=== PATIENT | male | born 1985 | race African-American/Black ===

== ENCOUNTER 2020-03-05 01:45 | Emergency (ER) | payer SELFPAY ==
[2020-03-05 01:49] VITALS: BP 112/70; PULSE 73; RESP 18; TEMP 36.4; O2SAT 100
--- NOTE | 2020-03-05 02:02 | ED.ABDPAIN ---
HPI - Abdominal Pain General Chief Complaint: Abdominal Pain Stated Complaint: abd pain, n/v History of Present Illness HPI narrative: 34 yo male presents with Epigastric abdominal pain. He says that he has the pain 1 or 2 times a month for quite awhile. The pain is burning in quality. It radiates into his chest. Associated with nausea and vomiting and diarrhea. He has not tried anything for his symptoms. Related Data Allergies Allergy/AdvReac Type Severity Reaction Status Date / Time iodine Allergy Mild RASH Verified 02/02/18 10:21 Review of Systems Review of Systems: All systems reviewed & are unremarkable except as noted in HPI and below Constitutional: Constitutional: Denies chills and Denies fever(s) ENT: Denies sore throat Cardiovascular: Cardiovascular: Denies chest pain Respiratory: Respiratory: Denies dyspnea Gastrointestinal: Gastrointestinal: Reports abdominal pain, Reports diarrhea, Reports nausea and Reports vomiting PMFSH Social History Social History Gender identity (if verbalized by the patient): Male Exam Const: General: no acute distress and alert Orientation/consciousness: patient oriented x3 HENMT: Mouth: Yes dry mucous membranes Resp: Effort & Inspection: normal respiratory effort Auscultation: clear to auscultation bilaterally Cardio: Rate: regular rate Rhythm: regular rhythm GI: GI Palp: Yes Soft to palpation and Yes Tenderness to palpation present (GI) (epigastrium) Skin: General skin exam: normal color Neuro: General: patient oriented x3 Speech: normal speech Extrem: General: normal to inspection Course Vital Signs Vital signs: Vital Signs Temperature 36.4 C 03/05/20 01:49 Pulse Rate 73 03/05/20 01:49 Respiratory Rate 18 03/05/20 01:49 Blood Pressure 112/70 03/05/20 01:49 Pulse Oximetry 100 03/05/20 01:49 Temperature 36.4 C 03/05/20 01:49 Pulse Rate 73 03/05/20 01:49 Respiratory Rate 18 03/05/20 01:49 Blood Pressure 112/70 03/05/20 01:49 Pulse Oximetry 100 03/05/20 01:49 MDM - Abdominal Pain MDM Narrative Medical decision making narrative: Symptoms most concerning for GERD, possibly gastritis or ulcer. Feeling better after GI cocktail. I will start him on acid controling medication. Medical Records Attestation: I reviewed the patient's medical records. Lab Data Attestation: I reviewed the patient's lab results. Result diagrams: 03/05/20 02:21 03/05/20 02:21 Labs: Lab Results 03/05/20 03/05/20 Range/Units 02:21 02:21 WBC 5.4 (4.5-10.0) K/mm3 RBC 4.75 (4.6-6.20) M/mm3 Hgb 13.0 L (14.0-18.0) g/dL Hct 40.8 L (42.0-52.0) % MCV 85.9 (80-100) fl MCH 27.4 (26-34) pg MCHC 31.9 L (32-36) g/dl RDW 12.8 (11.5-14.5) % Plt Count 330 (150-375) k/mm3 MPV 9.5 (7.4-10.4) fl Immature Gran % (Auto) 0.2 (0-0.5) % Neut % (Auto) 48.0 (45.5-73.1) % Lymph % (Auto) 41.9 (18.3-44.2) % O'Brien % (Auto) 7.8 (2.6-8.5) % Eos % (Auto) 1.9 (0-4.4) % Baso % (Auto) 0.2 (0.2-1.2) % Lymph # (Auto) 2.26 (0.9-3.2) K/mm3 O'Brien # (Auto) 0.4 (0.1-0.6) K/mm3 Eos # (Auto) 0.1 (0-0.3) K/mm3 Baso # (Auto) 0.0 (0.0-0.1) K/mm3 Abs Immat Gran (auto) 0.01 (0.00-0.031) K/mm3 Absolute Neuts (auto) 2.6 (1.3-6.7) K/mm3 Absolute Nucleated RBC 0.0 (0.0-0.012) K/mm3 Nucleated RBC % 0.0 (0.0-0.2) % Sodium 136 L (137-145) mmol/L Potassium 4.2 (3.4-5.0) mmol/L Chloride 105 (98-107) mmol/L Carbon Dioxide 26 (22-30) mmol/L BUN 11 (9-20) mg/dL Creatinine 0.90 (0.7-1.3) mg/dL Estim Creat Clear Calc 115 ml/min Estimated GFR > 60 (59 - ) Glucose 105 (75-110) mg/dL Calcium 8.7 (8.4-10.2) mg/dL Total Bilirubin 0.7 (0.2-1.3) mg/dL AST 30 (17-59) U/L ALT 21 (4-50) U/L Alkaline Phosphatase 74 (38-126) U/L Total Protein 7.0 (6.3-8.2) g/dL Album
[2020-03-05] MEDS: ONDANSETRON INJ 4 MG/2 ML VIAL IV PUSH (02:03)
[2020-03-05] MEDS: PANTOPRAZOLE SODIUM IV 40 MG VIAL IV PUSH (02:03)
[2020-03-05] MEDS: SODIUM CHLORIDE 0.9% IV 1,000 ML 999 ML IV CONT (02:05)
[2020-03-05 02:31] LABS: Basophils Percent Auto 0.2 % (0.2-1.2); Eosinophils Absolute Auto 0.1 K/mm3 (0-0.3); Eosinophils Percent Auto 1.9 % (0-4.4); Hematocrit 40.8 % (42.0-52.0); Immature Granulocyte Absolute 0.01 K/mm3 (0.00-0.031); Immature Granulocyte Percent A 0.2 % (0-0.5); Lymphocytes Absolute Auto 2.26 K/mm3 (0.9-3.2); Lymphocytes Percent Auto 41.9 % (18.3-44.2); Mean Corpuscular HGB Conc 31.9 g/dl (32-36); Mean Corpuscular Hemoglobin 27.4 pg (26-34); Mean Corpuscular Volume 85.9 fl (80-100); Mean Platelet Volume 9.5 fl (7.4-10.4); Monocytes Absolute Auto 0.4 K/mm3 (0.1-0.6); Monocytes Percent Auto 7.8 % (2.6-8.5); Neutrophils Absolute Auto 2.6 K/mm3 (1.3-6.7); Platelet Count Result 330 k/mm3 (150-375); Red Blood Count 4.75 M/mm3 (4.6-6.20); Red Cell Distribution Width 12.8 % (11.5-14.5); White Blood Count 5.4 K/mm3 (4.5-10.0)
[2020-03-05 02:39] LABS: Alanine Aminotransferase 21 U/L (4-50); Albumin Level 3.9 g/dL (3.5-5.1); Alkaline Phosphatase 74 U/L (38-126); Aspartate Amino Transferase 30 U/L (17-59); Bilirubin,Total 0.7 mg/dL (0.2-1.3); Blood Urea Nitrogen 11 mg/dL (9-20); Calcium 8.7 mg/dL (8.4-10.2); Carbon Dioxide 26 mmol/L (22-30); Chloride 105 mmol/L (98-107); Estimated CRCL calculation 115 ml/min; Estimated Glomerular Filt Rate > 60; Glucose 105 mg/dL (75-110); Lipase 82 U/L (23-300); Potassium 4.2 mmol/L (3.4-5.0); Sodium 136 mmol/L (137-145)
[2020-03-05] MEDS: DICYCLOMINE HCL 10 MG CAPSULE 20 MG PO (03:03)
== END 2020-03-05 03:06 | disposition home or self-care (01) ==
PROVIDERS: Emergency Provider Emergency Medicine
DX: R10.13 Epigastric pain (principal)
CPT/HCPCS: 36415; 80053; 83690; 85025; 96361; 96374; 96375; 99284; A9270; C9113; J2405; J7030

== ENCOUNTER 2023-07-19 12:53 | Emergency (ER) | payer SELFPAY ==
--- NOTE | ~2023-07-19 | XR_ITS ---
EXAMINATION: XR foot LT min 3V DATE: 07/19/2023 13:08 INDICATION: Left foot pain TECHNIQUE: Dorsoplantar, lateral, and 2 oblique views of the left foot were obtained. COMPARISON: None. FINDINGS: Bone alignment is normal. There is no fracture. There is lateral soft tissue swelling near the fifth metatarsophalangeal joint. There is mild osteoarthritis of multiple interphalangeal joints. IMPRESSION: 1. No acute osseous abnormality. Reviewed, dictated and finalized at location L.
[2023-07-19 13:21] VITALS: BP 134/78; PULSE 80; RESP 12; TEMP 36.2; O2SAT 100
--- NOTE | 2023-07-19 17:48 | ED.LOWEXIN ---
HPI - Extremity Injury (Lower) General Chief Complaint: Extremity Injury, Lower Stated Complaint: L FOOT INJURY Time Seen by Provider: 07/19/23 17:26 Source: patient Mode of arrival: wheelchair Limitations: no limitations History of Present Illness HPI Narrative: This is a 37-year-old male that presents to the emergency department after an injury to his left fifth toe sustained just prior to arrival. Reports he stubbed it on the wall. Reports swelling and pain in the area. Reports decreased range of motion due to pain. Denies numbness. Related Data Allergies Allergy/AdvReac Type Severity Reaction Status Date / Time iodine Allergy Mild RASH Verified 02/02/18 10:21 Review of Systems Review of Systems: CONSTITUTIONAL: Denies fever MUSCULOSKELETAL: Reports joint pain, and myalgia. NEUROLOGIC: Denies numbness All systems reviewed & are unremarkable except as noted in HPI and below PMFSH Past Medical History Medical History (Updated 07/19/23 @ 17:52 by Neetu Borrero PA-C) No active medical problems Social History Social History (Updated 07/19/23 @ 17:52 by Neetu Borrero PA-C) Substance use: never Gender identity (if verbalized by the patient): Male Exam Narrative: GENERAL: Well-appearing, well-nourished, and in no acute distress. HEAD: Normocephalic, atraumatic. EYES: EOMI. EXTREMITIES: Normal range of motion. Mild edema about the left fifth metatarsal/phalangeal joint. Tender to palpation. Normal DP pulse. Normal sensation SKIN: Warm, dry, no rash. NEURO: No focal deficits. Alert and oriented x3. PSYCH: Normal mood and affect Course Course Emergency Course: Patient updated on work-up and agrees with plan of care Vital Signs Vital signs: Vital Signs Temperature 97.2 F L 07/19/23 13:21 Pulse Rate 80 07/19/23 13:21 Respiratory Rate 12 07/19/23 13:21 Blood Pressure 134/78 07/19/23 13:21 Pulse Oximetry 100 07/19/23 13:21 Oxygen Delivery Room Air 07/19/23 13:21 Temperature 97.2 F L 07/19/23 13:21 Pulse Rate 80 07/19/23 13:21 Respiratory Rate 12 07/19/23 13:21 Blood Pressure 134/78 07/19/23 13:21 Pulse Oximetry 100 07/19/23 13:21 Oxygen Delivery Room Air 07/19/23 13:21 MDM - Extremity Injury (Lower) MDM Narrative Medical decision making narrative: Patient presents to the emergency department after an injury to his left fifth toe prior to arrival. He is neurovascularly intact. Left foot x-rays without acute osseous abnormalities. Patient placed in a postop shoe and given crutches. Instructed on care of foot sprain. He is to follow-up with primary provider. He was given warnings to return to the ER Differential Diagnosis Differential diagnosis: Likely fracture of toe and other (Foot fracture, foot sprain) Imaging Data Radiologist's impression: ITS Impressions Foot X-Ray 07/19/23 13:10 IMPRESSION: 1. No acute osseous abnormality. Critical Care Time Critical Care Time Critical Care Time: No Discharge Plan Discharge Clinical Impression: Foot sprain Qualifiers: Encounter type: initial encounter Laterality: left Qualified Code(s): S93.602A - Unspecified sprain of left foot, initial encounter Patient Disposition: Home, Self-Care Condition: Stable Instructions: Foot Sprain (ED) Additional Instructions: Return to the ER if you experience fever, redness and swelling of your extremity, numbness or any other symptoms that are concerning to you Wear postop shoe and use crutches. No weight on the affected leg until able to bear weight without pain. Ice and elevate extremity. Pain medication as needed and directed. Follow up with primary care doctor for further care. Prescriptions: No Action pantoprazole [Protonix] 40 mg tablet,delayed release (DR/EC) 40 mg PO HS Qty: 30 0RF dicyclomine 20 mg tablet 20 mg PO BID PRN (Reason: abdominal pain) Qty: 20 0RF Follow-up/Referrals: PHYSICIAN,O
[2023-07-19 18:04] VITALS: BP 130/70; PULSE 80; RESP 16; TEMP 36.6; O2SAT 99
== END 2023-07-19 18:14 | disposition home or self-care (01) ==
PROVIDERS: Emergency Provider Physician Assistant
DX: S93.602A Unspecified sprain of left foot, initial encounter (principal); W22.01XA Walked into wall, initial encounter
CPT/HCPCS: 73630; 99283

== ENCOUNTER 2023-07-29 10:36 | Emergency (ER) | payer SELFPAY ==
[2023-07-29 10:47] VITALS: BP 131/93; PULSE 91; RESP 16; TEMP 36.8; O2SAT 100
--- NOTE | 2023-07-29 11:08 | ED.GENADULT ---
HPI - General Adult General Chief complaint: Upper Respiratory Infection Stated complaint: WANTS COVID TEST/NO SYMPTOMS Time Seen by Provider: 07/29/23 11:09 Source: patient, RN notes reviewed and old records reviewed Mode of arrival: ambulatory Limitations: no limitations History of Present Illness HPI narrative: 37 year old male presents to [facility] care with stated complaints that he injected himself with methamphetamine yesterday and he wants to be tested for COVID because he thinks he injected COVID into himself also. Patient denies any cough, sore throat, fevers, nasal congestion or drainage, body aches, or any nausea, vomiting or diarrhea. I explained that COVID is normally contacted through respiratory system. Patient reports he needs tested for COVID. Patient reports that he does not use methamphetamine daily. He reports also that he is enrolled in a study R13 through [employer]. complaint: Patient thinks he injected himself with COVID Onset (ago): day(s) (yesterday) Treatments prior to arrival: none Related Data Home Medications Medication Instructions Recorded Confirmed No Home Medications 07/29/23 07/29/23 Allergies Allergy/AdvReac Type Severity Reaction Status Date / Time iodine Allergy Mild RASH Verified 07/29/23 10:44 Review of Systems Review of Systems: CONSTITUTIONAL: Denies fever, chills, or sweats. EYES: Denies visual changes, redness, or discharge. ENT: Denies rhinorrhea, congestion, sore throat, or otalgia. CARDIOVASCULAR: Denies chest pain, palpitations, or edema. RESPIRATORY: Denies cough or dyspnea. GASTROINTESTINAL: Denies abdominal pain, nausea, vomiting, or diarrhea. GENITOURINARY: Denies dysuria or hematuria. SKIN: Denies rash or itching. MUSCULOSKELETAL: Denies back pain, joint pain, or myalgia. NEUROLOGIC: Denies headache, numbness, or weakness. PSYCHIATRIC: Denies anxiety or depression. All systems reviewed & are unremarkable except as noted in HPI and below PMFSH Past Medical History Medical History (Updated 07/31/23 @ 19:40 by Shahana Davis NP) No active medical problems Social History Social History (Updated 07/31/23 @ 19:25 by Shahana Davis NP) Substance use type: methamphetamine Gender identity (if verbalized by the patient): Male Comments At time of signature, agree with nursing past medical, surgical, social and family history. There is no relevant family history pertinent to the presenting complaint Exam Narrative: GENERAL: Well-appearing, well-nourished, and in no acute distress. HEAD: Normocephalic, atraumatic. EYES: PERRLA and EOMI. ENT: Nares clear, no rhinorrhea or epistaxis. Mucous membranes moist.TM's normal, throat pink with no swelling NECK: Supple.no lymphadenopathy CHEST: Clear to auscultation. No respiratory distress.no cough noted SAO2 100% on room air HEART: Regular rate and rhythm. No murmur heard. Normal peripheral pulses. ABDOMEN: Soft, nontender, nondistended, normal active bowel sounds. EXTREMITIES: Normal range of motion. No edema. SKIN: Warm, dry, no rash. NEURO: No focal deficits. Alert and oriented x3. Course Course Emergency Course: Patient is aware of diagnosis, understands and agrees to treatment plan.? Anticipatory guidance given.? Patient agrees to follow-up as directed and is aware of reasons to seek care at the emergency department. Portions of this record may have been created with voice recognition software Level of Care: Express Care Visit Vital Signs Vital signs: Vital Signs Temperature 36.8 C 07/29/23 10:47 Pulse Rate 91 07/29/23 10:47 Respiratory Rate 16 07/29/23 10:47 Blood Pressure 131/93 H 07/29/23 10:47 Pulse Oximetry 100 07/29/23 10:47 Temperature 36.8 C 07/29/23 10:47 Pulse Rate 91 07/29/23 10:47 Respiratory Rate 16 07/29/23 10:47 Blood Pressure 131/93 H 07/29/23 10:47 Pulse Oximetry 100 07/29/23 10:47 Reviewed Medical Decision Making MDM Narrative Medic
== END 2023-07-29 11:25 | disposition home or self-care (01) ==
PROVIDERS: Emergency Provider Registered Nurse
DX: Z20.822 Contact with and (suspected) exposure to COVID-19 (principal)
CPT/HCPCS: 87426; 99213; C9803; G0463

== ENCOUNTER 2023-08-15 12:56 | Emergency (ER) | payer SELFPAY ==
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
[2023-08-15 13:13] VITALS: BP 120/67; PULSE 85; RESP 16; TEMP 37.2; O2SAT 100
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
== END 2023-08-15 14:21 | disposition home or self-care (01) ==
PROVIDERS: Emergency Provider Nurse Practitioner
DX: S39.012A Strain of muscle, fascia and tendon of lower back, initial encounter (principal); V89.2XXA Person injured in unspecified motor-vehicle accident, traffic, initial encounter
CPT/HCPCS: 72100; 99203; G0463